=== PATIENT | female | born 1970 | race African-American/Black ===

== ENCOUNTER 2021-10-18 15:24 | Outpatient (CLI) | payer OTHER, SELFPAY ==
[2021-10-18 17:01] LABS: Vitamin D 25 Hydroxy 33.5 ng/mL
== END 2021-10-18 15:25 | disposition home or self-care (01) ==
LOC: ANHLAB 15:28
PROVIDERS: Visit Provider Obstetrics & Gynecology
DX: C50.919 Malignant neoplasm of unspecified site of unspecified female breast (principal); C18.9 Malignant neoplasm of colon, unspecified; Z78.0 Asymptomatic menopausal state
CPT/HCPCS: 36415; 82306

== ENCOUNTER 2021-10-26 09:05 | Outpatient (CLI) | payer OTHER, SELFPAY ==
--- NOTE | ~2021-10-26 | DEXA_ITS ---
Bone Density Report Name: YOUNG CROCKER Age: 51 Sex: Female Ethnicity: White Date of : 1970 Indication: postmenopausal; screening for osteoporosis; cancer; Referring Provider: LUCIEN PARRY Study: Bone densitometry was performed. Exam Date: October 26, 2021 Accession number: [id number] Bone Density: Region BMD T-score Z-score Classification AP Spine(L1-L4) 1.208 1.5 2.4 Normal Femoral Neck (Left) 0.976 1.1 2.1 Normal Total Hip (Left) 1.143 1.6 2.2 Normal Femoral Neck (Right) 0.968 1.1 2.0 Normal Total Hip (Right) 1.104 1.3 1.9 Normal Total Hip Mean 1.124 1.5 2.1 Normal World Health Organization criteria for BMD impression classify patients as: Normal (T-score at or above -1.0), Osteopenia (T-score between -1.0 and -2.5), or Osteoporosis (T-score at or below -2.5). 10-year Fracture Risk: FRAX not reported because: All T-scores for Spine Total, Hip Total, Femoral Neck at or above -1.0 Clinical Information Provided by Patient: Has the following medical conditions: Cancer Patient maximum height was 64.5 No regular weight bearing exercise Drinks caffeinated beverages Onset of menses at age 10 Number of children 2 Impression: The patient has normal bone mass. Discussion: LOW RISK OF FRACTURE; BONE DENSITY IS WELL ABOVE THE MINIMUM DESIRABLE LEVEL AND ABOVE AVERAGE FOR AGE AND SEX AT ALL SKELETAL SITES TESTED. This person's bone density is above expected limits for age and sex. This is rarely clinically significant, but should be pursued if there are significant musculoskeletal complaints. The patient should follow a healthful lifestyle (good nutrition with adequate calcium and vitamin D, and appropriate weight-bearing exercise). Follow-Up: Consider repeating this study in 5 years or sooner if there is some new clinical indication. Reported by: [facility] on 10/26/2021 9:30:00 AM. Reviewed, dictated and finalized at location AHal ALBA
== END 2021-10-26 09:06 | disposition home or self-care (01) ==
PROVIDERS: Visit Provider Obstetrics & Gynecology
DX: C50.919 Malignant neoplasm of unspecified site of unspecified female breast (principal); C18.9 Malignant neoplasm of colon, unspecified; Z78.0 Asymptomatic menopausal state
CPT/HCPCS: 77080

== ENCOUNTER 2024-10-15 15:03 | Outpatient (CLI) | payer OTHER, SELFPAY ==
--- NOTE | ~2024-10-15 | DEXA_ITS ---
Bone Density Report Name: YOUNG CROCKER Age: 54 Sex: Female Ethnicity: Black Date of : 1970 Indication: screening for osteoporosis; cancer; Referring Provider: LIZZY, NAY Mireles Study: Bone densitometry was performed. Exam Date: October 15, 2024 Accession number: [id number] Bone Density: Region BMD T-score Z-score Classification AP Spine(L1-L4) 1.181 1.2 1.5 Normal Femoral Neck (Left) 0.883 0.3 0.4 Normal Total Hip (Left) 1.071 1.1 0.9 Normal Femoral Neck (Right) 0.892 0.4 0.4 Normal Total Hip (Right) 1.025 0.7 0.6 Normal Total Hip Mean 1.048 0.9 0.8 Normal World Health Organization criteria for BMD impression classify patients as: Normal (T-score at or above -1.0), Osteopenia (T-score between -1.0 and -2.5), or Osteoporosis (T-score at or below -2.5). 10-year Fracture Risk: FRAX not reported because: Premenopausal woman All T-scores for Spine Total, Hip Total, Femoral Neck at or above -1.0 Clinical Information Provided by Patient: Has used the following medications: Vitamin D, Calcium Has the following medical conditions: Cancer Patient maximum height was 64 Drinks caffeinated beverages Onset of menses at age 11 Premenopausal Number of children 2 Missed period for more than 6 months in a row Impression: The patient's bone mass is within expected range for age, gender and ethnicity. Discussion: BONE DENSITY IS WITHIN EXPECTED LIMITS FOR AGE, SEX AND RACE. Bone density is within expected limits for age, sex and race at all sites measured. The patient should follow a healthful lifestyle (good nutrition with adequate calcium and vitamin D, and appropriate weight-bearing exercise). Follow-Up: Consider repeating this study in 5 years or sooner if there is some new clinical indication. Reported by: ARIN on 10/15/2024 3:24:00 PM. Reviewed, dictated and finalized at location A.
== END 2024-10-15 15:04 | disposition home or self-care (01) ==
LOC: MICIMG 15:04
PROVIDERS: Visit Provider Internal Medicine Medical Oncology
DX: C50.812 Malignant neoplasm of overlapping sites of left female breast (principal); Z17.0 Estrogen receptor positive status [ER+]; Z79.811 Long term (current) use of aromatase inhibitors
CPT/HCPCS: 77080